=== PATIENT | male | born 1990 | race Caucasian/White ===

== ENCOUNTER 2017-01-22 08:06 | Emergency (ER) | payer OTHER ==
[~2017-01-22] VITALS: Ht 177.8 cm; Wt 81.5 kg
[2017-01-22 08:10] VITALS: BP 139/70; PULSE 51; RESP 17; TEMP 97.6; O2SAT 100
[2017-01-22] MEDS ORDERED: BLOOD PRESSURE MED PO (08:21)
[2017-01-22] MEDS ORDERED: OMEP20TA93 PO (08:21)
[2017-01-22] MEDS ORDERED: SUBO2MIS SL (08:21)
[2017-01-22 08:43] LABS: AUTOMATED NEUTROPHIL # 5.8 TH/MM3 (1.8-7.7); BASOPHIL # 0.1 TH/MM3 (0-0.2); BASOPHIL % 0.8 % (0.0-2.0); EOSINOPHIL % 0.6 % (0.0-4.0); HEMATOCRIT 41.6 % (39.0-51.0); HEMOGLOBIN 14.1 GM/DL (13.0-17.0); LYMPH % 19.9 % (9.0-44.0); LYMPHOCYTE # 1.5 TH/MM3 (1.0-4.8); MEAN CELL VOLUME 84.9 FL (80.0-100.0); MEAN CORPUSCULAR HEMOGLOBIN 28.7 PG (27.0-34.0); MEAN CORPUSCULAR HGB CONC 33.8 % (32.0-36.0); MEAN PLATELET VOLUME 7.8 FL (7.0-11.0); MONO % 3.2 % (0.0-8.0); MONOCYTE # 0.2 TH/MM3 (0-0.9); NEUT % 75.5 % (16.0-70.0); PLATELET COUNT 232 TH/MM3 (150-450); RED CELL DISTRIBUTION WIDTH 12.5 % (11.6-17.2); WHITE BLOOD COUNT 7.6 TH/MM3 (4.0-11.0)
--- NOTE | 2017-01-22 08:49 | PD ---
HPI Chief Complaint: Abdominal Pain Time Seen by Provider: 08:15 Travel History International Travel<30 days: No Contact w/Intl Traveler<30days: No Traveled to known affect area: No History of Present Illness HPI This 26-year-old male is brought by ambulance. He says he doesn't feel good. He denies any vomiting or diarrhea. He says he is having unbearable pain and indicates both lower chest and abdomen as the site of the pain. He says he has some kind of stomach trouble but he cannot elaborate on what kind of trouble. He says he takes blood pressure medications and Zoloft. He admits to drinking occasionally. He denies drug use although paramedics report that he has been on Suboxone and has not had it for 2 days. Patient has been telling his parents that he has not felt well since he has been on Zoloft. He has been feeling weak and tired PFS Past Medical History High Cholesterol: Yes Diabetes: Yes Patient Takes Glucophage: No GERD: Yes Hypertension: Yes Social History Alcohol Use: Yes Tobacco Use: Yes Substance Use: Yes Allergies-Medications (Allergen,Severity, Reaction): Coded Allergies: No Known Allergies (Unverified , 01/22/17) Reported Meds & Prescriptions Reported Meds & Active Scripts Active Reported [Blood Pressure Med] 1 Tab PO DAILY Suboxone Sublingual Film (Buprenorphine-Naloxone Sublingual Film) 2-0.5 Mg Film 1 Film SL Unique ID number required: Omeprazole 20 Mg Tab 20 Mg PO DAILY Review of Systems ROS Limitations: Uncooperative, Poor Historian General / Constitutional: No: Fever, Chills HENT: No: Headaches Cardiovascular: No: Chest Pain or Discomfort, Palpitations Respiratory: No: Cough Gastrointestinal: Positive: Abdominal Pain, No: Nausea Genitourinary: No: Urgency Skin: No Rash Neurologic: No: Weakness Psychiatric: Positive: Anxiety Physical Exam Narrative GENERAL: Well-developed male. He is lying quietly in bed with his eyes closed. He does not appear to be in distress. He does not answer a lot of questions though he is capable of answering some. SKIN: Focused skin assessment warm/dry. HEAD: Atraumatic. Normocephalic. EYES: Pupils equal and round. No scleral icterus. No injection or drainage. ENT: No nasal bleeding or discharge. Mucous membranes pink and moist. NECK: Trachea midline. No JVD. CARDIOVASCULAR: Regular rate and rhythm. No murmur appreciated. RESPIRATORY: No accessory muscle use. Clear to auscultation. Breath sounds equal bilaterally. GASTROINTESTINAL: Abdomen soft, non-tender, nondistended. Hepatic and splenic margins not palpable. MUSCULOSKELETAL: No obvious deformities. No clubbing. No cyanosis. No edema. NEUROLOGICAL: Awake and alert. No obvious cranial nerve deficits. Motor grossly within normal limits. The speech. PSYCHIATRIC: Patient is quite withdrawn Data Data Last Documented VS Vital Signs Date Time Temp Pulse Resp B/P (MAP) Pulse Ox O2 Delivery O2 Flow Rate FiO2 01/22/17 08:10 97.6 51 17 139/70 (93) 100 Orders Orders Electrocardiogram (01/22/17 08:22) Complete Blood Count With Diff (01/22/17 08:22) Comprehensive Metabolic Panel (01/22/17 08:22) Troponin I (01/22/17 08:22) Lipase (01/22/17 08:22) Ua Includes Microscopic (01/22/17 08:49) Drug Screen, Random Urine (01/22/17 08:49) Acetaminophen (Tylenol) (01/22/17 09:00) Al-Mag Hy-Si 40-40-4 Mg/Ml Liq (Mag-Al P (01/22/17 10:30) Labs Laboratory Tests Test 01/22/17 08:35 01/22/17 09:00 White Blood Count 7.6 TH/MM3 Red Blood Count 4.90 MIL/MM3 Hemoglobin 14.1 GM/DL Hematocrit 41.6 % Mean Corpuscular Volume 84.9 FL Mean Corpuscular Hemoglobin 28.7 PG Mean Corpuscular Hemoglobin Concent 33.8 % Red Cell Distribution Width 12.5 % Platelet Count 232 TH/MM3 Mean Platelet Volume 7.8 FL Neutrophils (%) (Auto) 75.5 % Lymphocytes (%) (Auto) 19.9 % Monocytes (%) (Auto) 3.2 % Eosinophils (%) (Auto) 0.6 % Basophils (%) (Auto) 0.8 % Neutrophils # (Auto) 5.8 TH/MM3 Lymphocytes # (Auto) 1.5 TH/MM3 Monocytes # (Auto) 0.2 TH/MM3 Eosinophils # (Auto) 0.0 TH/MM3 Basophils # (Auto) 0.1 TH/MM3 CBC Comment DIFF FINAL Differential Comment Blood Urea Nitrogen 10 MG/DL Creatinine 0.93 MG/DL Random Glucose 140 MG/DL Total Protein 6.9 GM/DL Albumin 3.3 GM/DL Calcium Level 8.7 MG/DL Alkaline Phosphatase 82 U/L Aspartate Amino Transf (AST/SGOT) 14 U/L Alanine Aminotransferase (ALT/SGPT) 26 U/L Total Bilirubin 0.5 MG/DL Sodium Level 137 MEQ/L Potassium Level 3.6 MEQ/L Chloride Level 102 MEQ/L Carbon Dioxide Level 28.3 MEQ/L Anion Gap 7 MEQ/L Estimat Glomerular Filtration Rate 98 ML/MIN Troponin I LESS THAN 0.02 NG/ML Lipase 185 U/L Urine Collection Type CLEAN CATCH Urine Color YELLOW Urine Turbidity MOD Urine pH 8.5 Urine Specific [facility] 1.018 Urine Protein TRACE mg/dL Urine Glucose (UA) NEG mg/dL Urine Ketones NEG mg/dL Urine Occult Blood SMALL Urine Nitrite NEG Urine Bilirubin NEG Urine Leukocyte Esterase NEG Urine RBC 4-9 /hpf Urine Squamous Epithelial Cells 0-5 /hpf Urine Calcium Oxalate Crystals FEW /hpf Urine Amorphous Sediment LARGE Urine Collection Time 09:00 Urine Opiates Screen NEG Urine Barbiturates Screen NEG Urine Amphetamines Screen NEG Urine Benzodiazepines Screen NEG Urine Cocaine Screen NEG Urine Cannabinoids Screen NEG MDM Medical Decision Making Medical Screen Exam Complete: Yes Emergency Medical Condition: Yes Medical Record Reviewed: Yes Differential Diagnosis Differential includes psychiatric disorder, malingering, gastritis, cardiac illness, adverse medication reaction Narrative Course Drug screen is negative. Lab work is unremarkable. Patient's affect is really not changed and he remained somewhat withdrawn. His parents have come to the emergency department and will take him home. He notes [place] and sees a physician there. it seems this may be an adverse effects of Zoloft Diagnosis Primary Impression: Adverse drug reaction Additional Instructions: Follow-up with your own medical doctor Disposition: 01 DISCHARGE HOME Condition: Stable Amado Marte MD Jan 22, 2017 08:49
[2017-01-22 08:52] LABS: CHLORIDE 102 MEQ/L (98-107); SODIUM (NA) 137 MEQ/L (136-145)
[2017-01-22 08:55] LABS: CALCIUM 8.7 MG/DL (8.5-10.1)
[2017-01-22 08:56] LABS: ALBUMIN 3.3 GM/DL (3.4-5.0); BICARBONATE 28.3 MEQ/L (21.0-32.0); BLOOD UREA NITROGEN 10 MG/DL (7-18); GLUCOSE,RANDOM 140 MG/DL (74-106); LIPASE 185 U/L (73-393)
[2017-01-22 08:58] LABS: ALT (GPT) 26 U/L (12-78); AST (GOT) 14 U/L (15-37)
[2017-01-22 08:59] LABS: CREATININE 0.93 MG/DL (0.60-1.30); GLOMERULAR FILTRATION RATE 98 ML/MIN (>89)
[2017-01-22 09:00] LABS: TOTAL BILIRUBIN ADULT 0.5 MG/DL (0.2-1.0); TOTAL PROTEIN 6.9 GM/DL (6.4-8.2)
[2017-01-22] MEDS ORDERED: SODIUM CHLOR 0.9% 1000 ML INJ 1,000 ML IV ONE (09:00)
[2017-01-22] MEDS ORDERED: ACETAMINOPHEN 325 MG TAB PO ONE (09:00)
[2017-01-22 09:01] LABS: ALKALINE PHOSPHATASE 82 U/L (45-117)
[2017-01-22 09:04] LABS: BILIRUBIN, URINE NEG (NEG); BLOOD, URINE SMALL (NEG); GLUCOSE,URINE NEG (NEG); KETONE, URINE NEG (NEG); NITRITE,URINE NEG (NEG); PH, URINE 8.5 (5.0-8.5); URINE LEUKOCYTE ESTERASE NEG (NEG)
[2017-01-22 09:04] LABS: TROPONIN I LESS THAN 0.02 NG/ML (0.02-0.05)
[2017-01-22 09:13] LABS: AMORPHOUS SEDIMENT, URINE LARGE; CALCIUM OXALATE CRYSTALS,URINE FEW /hpf; SQUAMOUS EPITHELIAL CELL URINE 0-5 /hpf (0-5); URINE COLOR YELLOW (YELLW/STRAW)
[2017-01-22] MEDS ORDERED: ALUMINUM/MAGNESIUM/SIMETH 30 ML CUP PO ONE (10:30)
[2017-01-22] MEDS ORDERED: ZOLO25TA PO (11:27)
--- NOTE | 2017-01-22 14:45 | EKG ---
Date Performed: 01/22/2017 Time Performed: 08:38:41 PTAGE: 26 years EKG: SINUS BRADYCARDIA BORDERLINE ECG NO PREVIOUS TRACING DOCTOR: Ting Conley Interpretating Date/Time 01/22/2017 14:44:00
--- NOTE | 2017-01-22 14:45 | EKG ---
Date Performed: 01/22/2017 Time Performed: 08:38:41 PTAGE: 26 years EKG: SINUS BRADYCARDIA BORDERLINE ECG NO PREVIOUS TRACING DOCTOR: Ting Conley Interpretating Date/Time 01/22/2017 14:44:00
--- NOTE | 2017-01-22 14:45 | EKG ---
Date Performed: 01/22/2017 Time Performed: 08:38:41 PTAGE: 26 years EKG: SINUS BRADYCARDIA BORDERLINE ECG NO PREVIOUS TRACING DOCTOR: Ting Conley Interpretating Date/Time 01/22/2017 14:44:00
[2017-01-23] MEDS ORDERED: BUPR150CR PO (11:19)
== END 2017-01-22 10:47 | disposition home or self-care (01) ==
LOC: PHED 08:06
DX: R10.9 Unspecified abdominal pain (principal); R00.1 Bradycardia, unspecified; T43.225A Adverse effect of selective serotonin reuptake inhibitors, initial encounter; Z79.899 Other long term (current) drug therapy
CPT/HCPCS: 80053; 80307; 81001; 83690; 84484; 85025; 93005; 99284

== ENCOUNTER 2017-01-22 11:18 | Observation (INO) | payer OTHER ==
[~2017-01-22] VITALS: Ht 180.3 cm; Wt 83.0 kg
[~2017-01-22 11:18] MED LIST: BLOOD PRESSURE MED PO; OMEP20TA PO; SUBO2MIS SL
[2017-01-22] MEDS ORDERED: IOHEXOL 350 MG/ML 10 ML VIAL (for RAD DIAG) IVCONTRAST ONE (11:19)
[2017-01-22 11:21] VITALS: BP 162/74; PULSE 64; RESP 22; TEMP 97.9; O2SAT 100
[2017-01-22] MEDS ORDERED: ZOLO25TA PO (11:27)
[2017-01-22] MEDS ORDERED: SODIUM CHLOR 0.9% 1000 ML INJ 1,000 ML IV SCH ×2 (11:45→15:00)
[2017-01-22] MEDS ORDERED: ONDANSETRON HCL 4 MG/2 ML VIAL IV PUSH ONE (11:45)
[2017-01-22] MEDS ORDERED: MORPHINE SULFATE 4 MG/ML INJ IV PUSH ONE (11:45)
--- NOTE | 2017-01-22 11:45 | PD ---
HPI Chief Complaint: Abdominal Pain Time Seen by Provider: 11:23 Travel History International Travel<30 days: No Contact w/Intl Traveler<30days: No Traveled to known affect area: No History of Present Illness HPI 26 years old male complains of chest pain and abdominal pain and generalized malaise and weakness. Patient states that the symptoms started this morning. Patient was brought by EMS to [place] emergency room for evaluation this morning. Patient had EKG, blood tests and urine drug screen and UA done at the facility. Physical were normal. Patient was advised to follow-up with personal physician. Patient however complains of increasing chest pain or abdominal pain and became more lethargic. Patient was brought to the emergency room by his parents for evaluation. Patient states that he has history of hypertension, diabetes, hyperlipidemia, GERD. Patient denies history of illicit drug abuse. Patient was on Suboxone. It Is not clear when was the last time patient took Suboxone. Patient states that he stopped taking Suboxone several days ago. Patient started taking Zoloft recently. Patient's personal physician is from out of [facility]. REPLACED BY [facility] Past Medical History Anxiety: Yes Depression: Yes High Cholesterol: Yes Diabetes: Yes Patient Takes Glucophage: No GERD: Yes Hypertension: Yes Past Surgical History Surgical History: No Previous Surgery Social History Alcohol Use: No Tobacco Use: No Substance Use: Yes (ivdu hx) Allergies-Medications (Allergen,Severity, Reaction): Coded Allergies: No Known Allergies (Unverified , 01/22/17) Reported Meds & Prescriptions Reported Meds & Active Scripts Active Reported Zoloft (Sertraline HCl) 25 Mg Tab Unknown Dose PO DAILY [Blood Pressure Med] 1 Tab PO DAILY Omeprazole 20 Mg Tab 20 Mg PO DAILY Review of Systems General / Constitutional: No: Fever Eyes: No: Visual changes HENT: No: Headaches Cardiovascular: Positive: Chest Pain or Discomfort Respiratory: No: Shortness of Breath Gastrointestinal: Positive: Abdominal Pain Genitourinary: No: Dysuria Musculoskeletal: No: Pain Skin: No Rash Neurologic: No: Weakness Psychiatric: No: Depression Endocrine: No: Polydipsia Hematologic/Lymphatic: No: Easy Bruising Physical Exam Narrative GENERAL: Well-nourished, well-developed patient. SKIN: Focused skin assessment warm/dry. HEAD: Normocephalic. EYES: No scleral icterus. No injection or drainage. Pupils 2 mm equal reactive. NECK: Supple, trachea midline. No JVD or lymphadenopathy. CARDIOVASCULAR: Regular rate and rhythm without murmurs, gallops, or rubs. RESPIRATORY: Breath sounds equal bilaterally. No accessory muscle use. GASTROINTESTINAL: Abdomen soft, non-tender, nondistended. MUSCULOSKELETAL: No cyanosis, or edema. BACK: Nontender without obvious deformity. No CVA tenderness. Neurologic exam: Patient's lethargic however answer questions appropriately. Patient moves all extremities well. No obvious focal no larger deficit. Data Data Last Documented VS Vital Signs Date Time Temp Pulse Resp B/P (MAP) Pulse Ox O2 Delivery O2 Flow Rate FiO2 01/22/17 11:21 97.9 64 22 162/74 (103) 100 Orders Orders Electrocardiogram (01/22/17 11:27) Complete Blood Count With Diff (01/22/17 11:27) Comprehensive Metabolic Panel (01/22/17 11:27) Prothrombin Time / Inr (Pt) (01/22/17 11:27) Act Partial Throm Time (Ptt) (01/22/17 11:27) Blood Culture (01/22/17 11:27) C-Reactive Protein (Crp) (01/22/17 11:27) Urinalysis - C+S If Indicated (01/22/17 11:27) Westergren Sedimentation Rate (01/22/17 11:27) Magnesium (Mg) (01/22/17 11:27) Phosphorus (Po4) (01/22/17 11:27) Chest, Single Ap (01/22/17 11:27) Ct Brain W/O Iv Contrast(Rout) (01/22/17 11:27) Ct Abd/Pel W Iv Contrast(Rout) (01/22/17 11:27) Iv Access Insert/Monitor (01/22/17 11:27) Ecg Monitoring (01/22/17 11:27) Oximetry (01/22/17 11:27) Lactic Acid (01/22/17 11:27) Ct Pulmonary Angiogram (01/22/17 11:33) Sodium Chlor 0.9% 1000 Ml Inj (Ns 1000 M (01/22/17 11:45) Morphine Inj (Morphine Inj) (01/22/17 11:45) Ondansetron Inj (Zofran Inj) (01/22/17 11:45) Iohexol 350 Inj (Omnipaque 350 Inj) (01/22/17 11:19) Labs Laboratory Tests Test 01/22/17 11:35 White Blood Count 9.2 TH/MM3 Red Blood Count 5.36 MIL/MM3 Hemoglobin 15.6 GM/DL Hematocrit 46.8 % Mean Corpuscular Volume 87.2 FL Mean Corpuscular Hemoglobin 29.1 PG Mean Corpuscular Hemoglobin Concent 33.4 % Red Cell Distribution Width 13.6 % Platelet Count 288 TH/MM3 Mean Platelet Volume 8.0 FL Neutrophils (%) (Auto) 82.2 % Lymphocytes (%) (Auto) 14.7 % Monocytes (%) (Auto) 2.6 % Eosinophils (%) (Auto) 0.1 % Basophils (%) (Auto) 0.4 % Neutrophils # (Auto) 7.6 TH/MM3 Lymphocytes # (Auto) 1.4 TH/MM3 Monocytes # (Auto) 0.2 TH/MM3 Eosinophils # (Auto) 0.0 TH/MM3 Basophils # (Auto) 0.0 TH/MM3 CBC Comment DIFF FINAL Differential Comment Erythrocyte Sedimentation Rate 1 mm/hr Prothrombin Time 12.0 SEC Prothromb Time International Ratio 1.1 RATIO Activated Partial Thromboplast Time 26.5 SEC Blood Urea Nitrogen 9 MG/DL Creatinine 0.89 MG/DL Random Glucose 135 MG/DL Total Protein 7.4 GM/DL Albumin 3.6 GM/DL Calcium Level 9.1 MG/DL Phosphorus Level 1.1 MG/DL Magnesium Level 2.1 MG/DL Alkaline Phosphatase 85 U/L Aspartate Amino Transf (AST/SGOT) 18 U/L Alanine Aminotransferase (ALT/SGPT) 27 U/L Total Bilirubin 0.4 MG/DL Sodium Level 137 MEQ/L Potassium Level 4.0 MEQ/L Chloride Level 103 MEQ/L Carbon Dioxide Level 26.9 MEQ/L Anion Gap 7 MEQ/L Estimat Glomerular Filtration Rate 103 ML/MIN Lactic Acid Level 2.0 mmol/L C-Reactive Protein LESS THAN 0.29 MG/DL MDM Medical Decision Making Medical Screen Exam Complete: Yes Emergency Medical Condition: Yes Interpretation(s) Last Impressions CT Angiography 01/22/17 1943 Signed Impressions: Service Date/Time: December 12:49 - CONCLUSION: 1. No CT evidence for pulmonary artery embolism. 2. Unremarkable CT examination of the chest. Benji Jenkins MD Chest X-Ray 01/22/17 1127 Signed Impressions: Service Date/Time: December 11:54 - CONCLUSION: Normal examination. Eugenio Lund MD 1328 PM. CBC within normal limit. Sedimentation rate 1. CMP within normal limit. Lactic acid 2.0. Differential Diagnosis Differential diagnosis including substance-induced mood disorder, angina, AL, PE , pneumothorax, gastritis, PUD, pancreatitis, cholecystitis, colitis, UTI, pyelonephritis, sepsis. Narrative Course 26 years old male with chest pain and abdominal pain altered mental status. Normal saline solution 125 cc an hour. Diagnosis Primary Impression: Chest pain Qualified Codes: R07.9 - Chest pain, unspecified Additional Impressions: Abdominal pain Qualified Codes: R10.13 - Epigastric pain Altered mental status Qualified Codes: R41.0 - Disorientation, unspecified Alexandru Quiroz MD Jan 22, 2017 11:45
[2017-01-22 11:54] LABS: AUTOMATED NEUTROPHIL # 7.6 TH/MM3 (1.8-7.7); BASOPHIL % 0.4 % (0.0-2.0); EOSINOPHIL % 0.1 % (0.0-4.0); HEMATOCRIT 46.8 % (39.0-51.0); HEMOGLOBIN 15.6 GM/DL (13.0-17.0); LYMPH % 14.7 % (9.0-44.0); LYMPHOCYTE # 1.4 TH/MM3 (1.0-4.8); MEAN CELL VOLUME 87.2 FL (80.0-100.0); MEAN CORPUSCULAR HEMOGLOBIN 29.1 PG (27.0-34.0); MEAN CORPUSCULAR HGB CONC 33.4 % (32.0-36.0); MONO % 2.6 % (0.0-8.0); MONOCYTE # 0.2 TH/MM3 (0-0.9); NEUT % 82.2 % (16.0-70.0); PLATELET COUNT 288 TH/MM3 (150-450); RED BLOOD COUNT 5.36 MIL/MM3 (4.50-5.90); RED CELL DISTRIBUTION WIDTH 13.6 % (11.6-17.2); WHITE BLOOD COUNT 9.2 TH/MM3 (4.0-11.0)
[2017-01-22 12:03] LABS: INTERNATIONAL NORMALIZED RATIO 1.1 RATIO
[2017-01-22 12:14] LABS: ALBUMIN 3.6 GM/DL (3.4-5.0); ALT (GPT) 27 U/L (12-78); AST (GOT) 18 U/L (15-37); BICARBONATE 26.9 MEQ/L (21.0-32.0); BLOOD UREA NITROGEN 9 MG/DL (7-18); C-REACTIVE PROTEIN LESS THAN 0.29 MG/DL (0.00-0.30); CALCIUM 9.1 MG/DL (8.5-10.1); CHLORIDE 103 MEQ/L (98-107); CREATININE 0.89 MG/DL (0.60-1.30); GLOMERULAR FILTRATION RATE 103 ML/MIN (>89); GLUCOSE,RANDOM 135 MG/DL (74-106); MAGNESIUM 2.1 MG/DL (1.5-2.5); PHOSPHORUS 1.1 MG/DL (2.5-4.9); SODIUM (NA) 137 MEQ/L (136-145)
[2017-01-22 12:16] LABS: ALKALINE PHOSPHATASE 85 U/L (45-117); TOTAL BILIRUBIN ADULT 0.4 MG/DL (0.2-1.0); TOTAL PROTEIN 7.4 GM/DL (6.4-8.2)
--- NOTE | 2017-01-22 12:25 | RADRPT ---
EXAM DATE/TIME: 01/22/2017 11:54 [facility] COMPARISON: No previous studies available for comparison. INDICATIONS : Shortness of breath. MEDICAL HISTORY : Hypercholesterolemia. Hypertension Gastroesophageal reflux disease. Diabetes SURGICAL HISTORY : None. ENCOUNTER: Initial ACUITY: 1 day PAIN SCORE: Non-responsive. LOCATION: Bilateral chest FINDINGS: A single view of the chest demonstrates the lungs to be symmetrically aerated without evidence of mas s, infiltrate or effusion. The cardiomediastinal contours are unremarkable. Osseous structures are intact. CONCLUSION: Normal examination. Eugenio Lund MD on January 22, 2017 at 12:22 Board Certified Radiologist. This report was verified electronically.
--- NOTE | 2017-01-22 13:13 | RADRPT ---
EXAM DATE/TIME: 01/22/2017 12:49 [facility] COMPARISON: No previous studies available for comparison. INDICATIONS : Chest pain IV CONTRAST: 99 cc Omnipaque 350 (iohexol) IV ; Cumulative dose for multiple exams. RADIATION DOSE: 15.98 CTDIvol (mGy) MEDICAL HISTORY : Hypertension. Diabetes SURGICAL HISTORY : None. ENCOUNTER: Initial ACUITY: 1 day PAIN SCALE: 10/10 LOCATION: chest TECHNIQUE: Volumetric scanning of the chest was performed using a pulmonary embolism protocol MIP images were re constructed. Using automated exposure control and adjustment of the mA and/or kV according to patien t size, radiation dose was kept as low as reasonably achievable to obtain optimal diagnostic quality images. DICOM format image data is available electronically for review and comparison. Follow-up recommendations for detected pulmonary nodules are based at a minimum on nodule size and pa tient risk factors according to Fleischner Society Guidelines. FINDINGS: PULMONARY ARTERIES: No filling defects are seen in the pulmonary arteries through the segmental level. LUNGS: There is no consolidation or pneumothorax . No concerning pulmonary nodule is visualized. PLEURAE: There is no pleural thickening or pleural effusion. MEDIASTINUM: There is good visualization of the great vessels of the middle mediastinum. No evidence of mediastin al or hilar adenopathy/mass. MUSCULOSKELETAL: Mild pectus deformity. Otherwise, within normal limits for patient age. MISCELLANEOUS: The visualized upper abdominal organs demonstrate no acute abnormality. CONCLUSION: 1. No CT evidence for pulmonary artery embolism. 2. Unremarkable CT examination of the chest. Benji Jenkins MD on January 22, 2017 at 13:07 Board Certified Radiologist. This report was verified electronically.
--- NOTE | 2017-01-22 13:26 | RADRPT ---
EXAM DATE/TIME: 01/22/2017 12:45 [facility] COMPARISON: No previous studies available for comparison. INDICATIONS : Altered mental status RADIATION DOSE: 47.03 CTDIvol (mGy) MEDICAL HISTORY : Hypertension. Diabetes SURGICAL HISTORY : None. ENCOUNTER: Initial ACUITY: 1 day PAIN SCALE: 10/10 LOCATION: cranial TECHNIQUE: Multiple contiguous axial images were obtained of the head. Using automated exposure control and adj ustment of the mA and/or kV according to patient size, radiation dose was kept as low as reasonably a chievable to obtain optimal diagnostic quality images. DICOM format image data is available electro nically for review and comparison. FINDINGS: CEREBRUM: The ventricles are normal for age. No evidence of midline shift, mass lesion, hemorrhage or acute in farction. No extra-axial fluid collections are seen. POSTERIOR FOSSA: The cerebellum and brainstem are intact. The 4th ventricle is midline. The cerebellopontine angle i s unremarkable. EXTRACRANIAL: The visualized portion of the orbits is intact. SKULL: The calvaria is intact. No evidence of skull fracture. CONCLUSION: Normal examination. Sony Alexander Jr., MD on January 22, 2017 at 13:23 Board Certified Radiologist. This report was verified electronically.
--- NOTE | 2017-01-22 13:27 | RADRPT ---
EXAM DATE/TIME: 01/22/2017 12:49 [facility] COMPARISON: No previous studies available for comparison. INDICATIONS : Mid abdomen pain starting last night IV CONTRAST: 99 cc Omnipaque 350 (iohexol) IV ; Cumulative dose for multiple exams. ORAL CONTRAST: No oral contrast ingested. RADIATION DOSE: 6.95 CTDIvol (mGy) MEDICAL HISTORY : Hypertension. Diabetes SURGICAL HISTORY : None. ENCOUNTER: Initial ACUITY: 1 day PAIN SCALE: 10/10 LOCATION: Abdomen TECHNIQUE: Volumetric scanning of the abdomen and pelvis was performed. Using automated exposure control and adjustment of the mA and/or kV according to patient size, radiation dose was kept as low as reasonably achievable to obtain optimal diagnostic quality images. DICOM format image data is av ailable electronically for review and comparison. FINDINGS: LOWER LUNGS: The visualized lower lungs are clear. LIVER: Homogeneous density without lesion. There is no dilation of the biliary tree. No calcifi ed gallstones. SPLEEN: Normal size without lesion. PANCREAS: Within normal limits. KIDNEYS: Normal in size and shape. Contrast in the renal collecting systems from recent contrast administration. There is no mass, stone or hydronephrosis. ADRENAL GLANDS: Within normal limits. VASCULAR: There is no aortic aneurysm. BOWEL/MESENTERY: The stomach, small bowel, and colon demonstrate no acute abnormality. The append ix is not definitively visualized. However, no significant adenopathy or significant inflammatory collins nge. There is no free intraperitoneal air or fluid. ABDOMINAL WALL: Within normal limits. RETROPERITONEUM: There is no lymphadenopathy. BLADDER: No wall thickening or mass. REPRODUCTIVE: Within normal limits. INGUINAL: There is no lymphadenopathy or hernia. MUSCULOSKELETAL: Within normal limits for patient age. CONCLUSION: 1. Appendix is not definitively visualized. However, no significant secondary inflammatory changes in the pericecal region. 2. No acute CT abnormality in the abdomen or pelvis. Benji Jenkins MD on January 22, 2017 at 13:21 Board Certified Radiologist. This report was verified electronically.
[2017-01-22] MEDS ORDERED: SODIUM CHLORIDE 0.9% FLUSH 10 ML FLUSH IV FLUSH PRN ×2 (13:45→14:00)
[2017-01-22] MEDS ORDERED: FAMOTIDINE 20 MG/2 ML VIAL IV PUSH ONE (13:45)
[2017-01-22 13:57] VITALS: O2SAT 99
[2017-01-22] MEDS ORDERED: NALOXONE HCL 0.4 MG/ML AMP IV PUSH PRN (14:00)
[2017-01-22] MEDS ORDERED: BISACODYL 10 MG SUPP RECTAL PRN (14:00)
[2017-01-22] MEDS ORDERED: ONDANSETRON HCL 4 MG/2 ML VIAL IVP PRN (14:00)
[2017-01-22] MEDS ORDERED: LACTULOSE SYRUP 20 GM/30 ML CUP PO PRN (14:00)
[2017-01-22] MEDS ORDERED: MAGNESIUM HYDROXIDE SUSP 30 ML CUP PO PRN (14:00)
[2017-01-22] MEDS ORDERED: ACETAMINOPHEN 325 MG TAB PO PRN (14:00)
[2017-01-22] MEDS ORDERED: SENNOSIDES 8.6 MG TAB PO PRN (14:00)
[2017-01-22 14:21] LABS: AMORPHOUS SEDIMENT, URINE MANY; BACTERIA, URINE OCC /hpf; BILIRUBIN, URINE NEG (NEG); BLOOD, URINE TRACE (NEG); GLUCOSE,URINE NEG (NEG); KETONE, URINE NEG (NEG); MUCUS URINE FEW /lpf (OCC); NITRITE,URINE NEG (NEG); PH, URINE 8.5 (5.0-8.5); URINE COLOR YELLOW (YELLW/STRAW); URINE LEUKOCYTE ESTERASE NEG (NEG)
--- NOTE | 2017-01-22 14:25 | HHI.HP ---
[facility] Non-Staff Admission Diagnosis altered mental status. Chest pain. Abdominal pain. Diagnoses: Chief Complaint: Altered mental status Travel History International Travel<30 Days: No Contact w/Intl Traveler <30 Da: No Traveled to Known Affected Are: No History of Present Illness Written by Tong Kim, acting as scribe for Dr. Reza on 01/22/17 at 14:24. 26-year-old male with past medical history of HTN, HLD, GERD, anxiety/depression , and hypoglycemia who presented for altered mental status. The patient remains lethargic and does not contribute much to history. The patient's parents are at bedside who do assist with history. Patient's father states he talked to the patient yesterday who complained of feeling a bit tired, but was otherwise normal. When the patient's father talked to him on the phone today he states that the patient told him that he "felt sick" and the patient was not very talkative at that time. The patient went to the emergency department in [facility] earlier today, workup was negative at that time and the patient was recommended to follow-up with his PCP. The patient's parents report he was not able to walk out of the ED. They called the patient's PCP who reportedly recommended he come back to the ED to have CTs done. Reportedly the patient has been complaining much more to his mother and his sister recently about being tired, depressed, not caring about anything, and questioning if he is bipolar. His PCP recently increased his Zoloft dose, does not see a psychiatrist. The patient's family reports that he has not expressed any suicidal ideations to them. The patient is arousable but sleepy. He is oriented to month, year, hospital, trunk, and self. He states that he started having chest pressure last night, denies any radiation and states the pain is still going on. The patient states that he has vomited multiple times today. He denies any diarrhea or abdominal pain. The patient denies any substance ingestion. Review of Systems ROS Limitations: Altered Mental Status Review of systems is limited secondary to altered mental status Past Family Social History Past Medical History Anxiety/depression Hypertension Hyperlipidemia GERD History of hypoglycemia Past Surgical History EGD Reported Medications Reported Meds & Active Scripts Active Reported Zoloft (Sertraline HCl) 25 Mg Tab Unknown Dose PO DAILY [Blood Pressure Med] 1 Tab PO DAILY Omeprazole 20 Mg Tab 20 Mg PO DAILY Allergies: Coded Allergies: No Known Allergies (Unverified , 01/22/17) Active Ordered Medications Current Medications Medications (Trade) Dose Ordered Sig/Calderon Route Start Time Stop Time Status Last Admin (NS Flush) 2 ml UNSCH PRN IV FLUSH 01/22/17 13:45 Sodium Chloride 1,000 ml @ 100 mls/hr Q10H IV 01/22/17 15:00 (NS Flush) 2 ml BID IV FLUSH 01/22/17 21:00 (Tylenol) 650 mg Q4H PRN PO 01/22/17 14:00 (Zofran Inj) 4 mg Q6H PRN IVP 01/22/17 14:00 (Narcan Inj) 0.4 mg UNSCH PRN IV PUSH 01/22/17 14:00 (Milk Of Magnesia Liq) 30 ml Q12H PRN PO 01/22/17 14:00 (Senokot) 17.2 mg Q12H PRN PO 01/22/17 14:00 (Dulcolax Supp) 10 mg DAILY PRN RECTAL 01/22/17 14:00 (Lactulose Liq) 30 ml DAILY PRN PO 01/22/17 14:00 Family History Father has high blood pressure Maternal grandmother has diabetes Social History Occasional alcohol use Smokeless tobacco use History of OxyContin abuse 5 years ago, went to rehabilitation for substance abuse and was on Suboxone at the time Physical Exam Vital Signs Vital Signs Date Time Temp Pulse Resp B/P (MAP) Pulse Ox O2 Delivery O2 Flow Rate FiO2 01/22/17 14:05 14 01/22/17 13:57 99 21 01/22/17 11:21 97.9 64 22 162/74 (103) 100 Physical Exam GENERAL: Well-developed well-nourished. In no acute distress. SKIN: Warm and dry. No lesions noted. HEENT: Normocephalic. Pupils equal and round and reactive to light. Mucous membranes pink and moist. CARDIOVASCULAR: Pectus excavatum. Regular rate and rhythm. No murmur appreciated. RESPIRATORY: No accessory muscle use. Clear to auscultation. Breath sounds equal bilaterally. GASTROINTESTINAL: Abdomen soft, non-tender, nondistended. Bowel sounds x4. MUSCULOSKELETAL: No obvious deformities. No clubbing or cyanosis. No edema. NEUROLOGICAL: Sleepy but awakens easily. Follows commands. No focal neurological deficits. Moves upper and lower extremities spontaneously. Normal speech. Laboratory Laboratory Tests Test 01/22/17 11:35 01/22/17 13:56 White Blood Count 9.2 Red Blood Count 5.36 Hemoglobin 15.6 Hematocrit 46.8 Mean Corpuscular Volume 87.2 Mean Corpuscular Hemoglobin 29.1 Mean Corpuscular Hemoglobin Concent 33.4 Red Cell Distribution Width 13.6 Platelet Count 288 Mean Platelet Volume 8.0 Neutrophils (%) (Auto) 82.2 Lymphocytes (%) (Auto) 14.7 Monocytes (%) (Auto) 2.6 Eosinophils (%) (Auto) 0.1 Basophils (%) (Auto) 0.4 Neutrophils # (Auto) 7.6 Lymphocytes # (Auto) 1.4 Monocytes # (Auto) 0.2 Eosinophils # (Auto) 0.0 Basophils # (Auto) 0.0 CBC Comment DIFF FINAL Differential Comment Erythrocyte Sedimentation Rate 1 Prothrombin Time 12.0 Prothromb Time International Ratio 1.1 Activated Partial Thromboplast Time 26.5 Blood Urea Nitrogen 9 Creatinine 0.89 Random Glucose 135 Total Protein 7.4 Albumin 3.6 Calcium Level 9.1 Phosphorus Level 1.1 Magnesium Level 2.1 Alkaline Phosphatase 85 Aspartate Amino Transf (AST/SGOT) 18 Alanine Aminotransferase (ALT/SGPT) 27 Total Bilirubin 0.4 Sodium Level 137 Potassium Level 4.0 Chloride Level 103 Carbon Dioxide Level 26.9 Anion Gap 7 Estimat Glomerular Filtration Rate 103 Lactic Acid Level 2.0 C-Reactive Protein LESS THAN 0.29 Date/Time Source Procedure Growth Status 01/22/17 11:35 Blood Peripheral Aerobic Blood Culture Pending Received 01/22/17 11:35 Blood Peripheral Anaerobic Blood Culture Pending Received Result Diagram: 01/22/17 1135 01/22/17 1135 Caprini VTE Risk Assessment Caprini VTE Risk Assessment: No/Low Risk (score <= 1) Caprini Risk Assessment Model Point Value = 1 Point Value = 2 Point Value = 3 Point Value = 5 Age 41-60 Minor surgery BMI > 25 kg/m2 Swollen legs Varicose veins or History of unexplained or recurrent spontaneous Oral contraceptives or hormone replacement Sepsis (< 1 month) Serious lung disease, including pneumonia (< 1 month) Abnormal pulmonary function Acute myocardial infarction Congestive heart failure (< 1 month) History of inflammatory bowel disease Medical patient at bed rest Age 61-74 Arthroscopic surgery Major open surgery (> 45 min) Laparoscopic surgery (> 45 min) Malignancy Confined to bed (> 72 hours) Immobilizing plaster cast Central venous access Age >= 75 History of VTE Family history of VTE Factor V Leiden Prothrombin [id number] Lupus anticoagulant Anticardiolipin antibodies Elevated serum homocysteine Heparin-induced thrombocytopenia Other congenital or acquired thrombophilia Stroke (< 1 month) Elective arthroplasty Hip, pelvis, or leg fracture Acute spinal cord injury (< 1 month) Prophylaxis Regimen Total Risk Factor Score Risk Level Prophylaxis Regimen 0-1 Low Early ambulation 2 Moderate Order ONE of the following: *Sequential Compression Device (SCD) *Heparin 5000 units SQ BID 3-4 Higher Order ONE of the following medications: *Heparin 5000 units SQ TID *Enoxaparin/Lovenox 40 mg SQ daily (WT < 150 kg, CrCl > 30 mL/min) *Enoxaparin/Lovenox 30 mg SQ daily (WT < 150 kg, CrCl > 10-29 mL/min) *Enoxaparin/Lovenox 30 mg SQ BID (WT < 150 kg, CrCl > 30 mL/min) AND/OR *Sequential Compression Device (SCD) 5 or more Highest Order ONE of the following medications: *Heparin 5000 units SQ TID (Preferred with Epidurals) *Enoxaparin/Lovenox 40 mg SQ daily (WT < 150 kg, CrCl > 30 mL/min) *Enoxaparin/Lovenox 30 mg SQ daily (WT < 150 kg, CrCl > 10-29 mL/min) *Enoxaparin/Lovenox 30 mg SQ BID (WT < 150 kg, CrCl > 30 mL/min) AND *Sequential Compression Device (SCD) Assessment and Plan Assessment and Plan 26-year-old male with past medical history of HTN, HLD, GERD, anxiety/depression , and hypoglycemia who presented for altered mental status Acute encephalopathy: Presented with altered mental status and lethargy. Unclear etiology, possibly toxic and/or metabolic. Reviewed: UDS negative. Labs with no signs of infection. Head CT normal. -Neuro checks -IVF with D5 with hypoglycemia history, although blood glucose has been within normal limits -Check TSH Atypical chest pain: Reviewed: EKG with rate 50, no acute changes. Pulmonary angiogram with no evidence of PE and unremarkable CT of the chest. -Check serial troponins and EKGs -Monitor on telemetry Depression: Patient's family reports severe depression recently. -Hold Zoloft for now and consult psychiatry Hypertension: BP is not optimally controlled. -Reconcile and resume home BP meds -IV Vasotec as needed Nausea and vomiting: Abdominal CT with no acute CT abnormality in the abdomen or pelvis. -Supportive care with IVF, antiemetics -Continue PPI for GERD history DVT prophylaxis: SCDs This note was transcribed by angie Kim PA-C. I, Dr. Rob Reza personally performed the history, physical exam, and medical decision making; and confirmed the accuracy of the information in the transcribed note. Authenticated by Dr. Rob Reza on 01/22/17 at 16:37. Discussed Condition With Patient with parents at bedside, ED staff Tong Kim Jan 22, 2017 14:24 Trudy Reza DO Jan 22, 2017 16:37
[2017-01-22] MEDS ORDERED: ENALAPRILAT 1.25 MG/ML VIAL IV PUSH PRN (14:45)
[2017-01-22 15:00] VITALS: BP 167/83; PULSE 42; RESP 15; O2SAT 99
[2017-01-22] MEDS: D5-1/2 NS + KCL 20 MEQ INJ 1,000 ML IV SCH (15:36)
[2017-01-22 15:47] VITALS: BP 159/81; PULSE 138; RESP 20; TEMP 95.4; O2SAT 99
[2017-01-22 20:00] VITALS: PULSE 42
[2017-01-22 20:01] VITALS: BP 176/82; PULSE 41; RESP 19; TEMP 98.7; O2SAT 100
[2017-01-22] MEDS: SODIUM CHLORIDE 0.9% FLUSH 10 ML FLUSH IV FLUSH SCH (21:00)
[2017-01-22 21:23] LABS: TROPONIN I LESS THAN 0.02 NG/ML (0.02-0.05)
--- NOTE | 2017-01-22 23:10 | EKG ---
Date Performed: 01/22/2017 Time Performed: 17:48:46 PTAGE: 26 years EKG: Sinus rhythm WITH JUNCTIONAL ESCAPE ABNORMAL RHYTHM ECG Compared to the PREVIOUS TRACING from 01/22/17, there is now junctional escape beats when R-R is longer DOCTOR: Alli Singleton Interpretating Date/Time 01/22/2017 23:08:34
--- NOTE | 2017-01-22 23:34 | EKG ---
Date Performed: 01/22/2017 Time Performed: 11:24:00 PTAGE: 26 years EKG: SINUS BRADYCARDIA WITH SINUS ARRHYTHMIA BORDERLINE ECG Compared to the PREVIOUS TRACING from 01/22/17, no significant change DOCTOR: Alli Singleton Interpretating Date/Time 01/22/2017 23:33:08
[2017-01-23 00:15] VITALS: PULSE 47
[2017-01-23 01:14] VITALS: BP 151/73; PULSE 45; RESP 18; TEMP 97.4; O2SAT 100
[2017-01-23 04:05] VITALS: PULSE 52
[2017-01-23] MEDS: D5-1/2 NS + KCL 20 MEQ INJ 1,000 ML IV SCH ×2 (04:56→11:14)
[2017-01-23 07:49] VITALS: BP 163/74; PULSE 49; RESP 18; TEMP 98.3; O2SAT 100
[2017-01-23] MEDS: SODIUM CHLORIDE 0.9% FLUSH 10 ML FLUSH IV FLUSH SCH (08:40)
[2017-01-23] MEDS ORDERED: PANTOPRAZOLE SOD 20 MG DELAYED RELEASE TAB PO SCH (09:00)
--- NOTE | 2017-01-23 10:42 | HHI.PR ---
Subjective Remarks Follow-up for altered mental status. Father at bedside. The patient is feeling better today. No further nausea and vomiting and has been tolerating oral intake. Denies any chest pain or abdominal pain. He does have some chronic back pain and complains that the bed is uncomfortable and is asking for heating pad. The patient was seen by psychiatry who offered voluntary admission , patient desires to follow up with psychiatry as outpatient. The patient's father does state that the patient told him that he has been taking Suboxone that he is not prescribed recently to avoid relapsing and reportedly the patient stopped taking Suboxone about 3 days prior to admission. Objective Vitals Vital Signs Date Time Temp Pulse Resp B/P (MAP) Pulse Ox O2 Delivery O2 Flow Rate FiO2 01/23/17 07:49 98.3 49 18 163/74 (103) 100 01/23/17 06:00 21 01/23/17 04:05 52 01/23/17 01:14 97.4 45 18 151/73 (99) 100 01/23/17 00:15 47 01/22/17 20:01 98.7 41 19 176/82 (113) 100 01/22/17 20:00 42 01/22/17 19:05 20 01/22/17 15:47 95.4 138 20 159/81 (107) 99 01/22/17 15:00 42 15 167/83 (111) 99 Room Air 01/22/17 14:05 14 01/22/17 13:57 99 21 01/22/17 11:21 97.9 64 22 162/74 (103) 100 I/O 01/22/17 01/22/17 01/22/17 01/23/17 01/23/17 01/23/17 07:00 15:00 23:00 07:00 15:00 23:00 Intake Total 320 ml Output Total 850 ml Balance 320 ml -850 ml Intake IV Total 320 ml Output Urine Total 850 ml Result Diagram: 01/22/17 1135 01/22/171134 Imaging Last Impressions CT Angiography 01/22/17 1133 Signed Impressions: Service Date/Time: December 12:49 - CONCLUSION: 1. No CT evidence for pulmonary artery embolism. 2. Unremarkable CT examination of the chest. Benji Jenkins MD Head CT 10/26/17 1127 Signed Impressions: Service Date/Time: December 12:45 - CONCLUSION: Normal examination. Sony Alexander Jr., MD Chest X-Ray 01/22/171126 Signed Impressions: Service Date/Time: , January 22, 2017 11:54 - CONCLUSION: Normal examination. Eugenio Lund MD Abdomen/Pelvis CT 01/22/171126 Signed Impressions: Service Date/Time: December 12:49 - CONCLUSION: 1. Appendix is not definitively visualized. However, no significant secondary inflammatory changes in the pericecal region. 2. No acute CT abnormality in the abdomen or pelvis. Benji Jenkins MD Objective Remarks GENERAL: Well-developed well-nourished. In no acute distress. SKIN: Warm and dry. No lesions noted. HEENT: Normocephalic. Pupils equal and round. Mucous membranes pink and moist. CARDIOVASCULAR: Regular rate and rhythm. No murmur appreciated. RESPIRATORY: No accessory muscle use. Clear to auscultation. Breath sounds equal bilaterally. GASTROINTESTINAL: Abdomen soft, non-tender, nondistended. Bowel sounds x4. MUSCULOSKELETAL: No obvious deformities. No clubbing or cyanosis. No edema. NEUROLOGICAL: Awake and alert. No focal neurological deficits. Moves upper and lower extremities spontaneously. Normal speech. PSYCHIATRIC: Mood and affect; aerobic guarded, but seems in better spirits today insight and judgment normal. A/P Assessment and Plan 26-year-old male with past medical history of HTN, HLD, GERD, anxiety/depression , and hypoglycemia who presented for altered mental status Acute encephalopathy: Presented with altered mental status and lethargy. Initially suspected symptoms might be related to substance abuse or withdrawal and patient did stop taking Suboxone 3 days prior. R/O underlying thyroid disorder. Symptoms much improved today. Reviewed: UDS negative. Labs with no signs of infection. Head CT normal. -Neuro checks -IVF with D5 with hypoglycemia history, although blood glucose has been within normal limits and monitor blood glucose -Thyroid workup as below Possible hyperthyroidism vs subclinical: TSH low. -We'll initiate workup with T3, T4, and cortisol level, although optimally this needs to be followed by endocrinology as outpatient. Consider methimazole depending on results. -Emphasized the need for outpatient endocrinology follow-up and patient and father agree. Atypical chest pain: Resolved. Reviewed: EKG with rate 50, no acute changes. Pulmonary angiogram with no evidence of PE and unremarkable CT of the chest. Troponin negative 3. -Monitor on telemetry Depression: Patient's family reports severe depression recently. -Hold Zoloft for now -Consult to psychiatry, and discussed with Dr. Rodarte. Patient offered voluntary inpatient psychiatry and he has declined and wishes to pursue outpatient psychiatry. -Psychiatry recommends Wellbutrin rather than Zoloft Hypertension: BP is not optimally controlled. -Reconcile and resume home BP med -IV Vasotec as needed -Give amlodipine 5 mg orally 1 pending resumption of home BP meds Nausea and vomiting: Abdominal CT with no acute CT abnormality in the abdomen or pelvis. Symptoms improved. -Supportive care with IVF, antiemetics -Continue PPI for GERD history Chronic back pain: -Heating pad and ibuprofen as needed DVT prophylaxis: SCDs Discharge Planning Follow-up thyroid/adrenal workup prior to discharge although patient needs outpatient endocrinology follow-up. Patient desires to follow-up with psychiatry as outpatient. Addendum 11:15: T3/T4 within normal limits and no acute intervention needed at this time. Recommended following up thyroid function next week and up with PCP and endocrinology; patient and father are happy with this and agree with plan of care; prescription for labs written. Discharge home today with prescription for Wellbutrin. Recommend follow-up with PCP, psychiatry, substance abuse counseling, and endocrinology. Tong Kim Jan 23, 2017 10:42
[2017-01-23] MEDS ORDERED: IBUPROFEN 600 MG TAB PO PRN (10:45)
[2017-01-23 10:50] LABS: FREE T4 1.05 NG/DL (0.76-1.46); TROPONIN I LESS THAN 0.02 NG/ML (0.02-0.05)
[2017-01-23] MEDS ORDERED: amLODIPine BESYLATE 5 MG TAB PO ONE (11:00)
[2017-01-23] MEDS ORDERED: BUPR150CR PO (11:19)
[2017-01-23 11:37] VITALS: BP 163/81; PULSE 47; RESP 18; TEMP 98.3; O2SAT 100
--- NOTE | 2017-01-23 12:48 | PD.PSY.CON ---
Provisional Diagnosis Admission Date Jan 22, 2017 at 13:53 [place] I. Major depressive disorder, single episode, severe, without psychosis [place] II. Deferred [place] III. hypertension [place] IV. Recent ruptured with a loving one [place] V. 55 History of Present Illness Service Psychiatry Consult Requested By ER team Reason for Consult Depressive symptoms Primary Care Physician Non-Staff HPI The patient is a 26-year-old man, domiciled alone, is single, he is employed, with psychiatric history of depression, no previous psychiatric hospitalizations, no previous suicidal attempts, he is on Zoloft 50 mg prescribed by PCP, he has a history of polysubstance dependence, including amphetamines, cocaine, marijuana, but he is in sustained full remission, with past medical history of HTN, HLD, GERD, who presented to the ED for altered mental status. As per initial ER documentation: The patient remains lethargic and does not contribute much to history. The patient's parents are at bedside who do assist with history. Patient's father states he talked to the patient yesterday who complained of feeling a bit tired, but was otherwise normal. When the patient' s father talked to him on the phone today he states that the patient told him that he "felt sick" and the patient was not very talkative at that time. The patient went to the emergency department in [facility] earlier today, workup was negative at that time and the patient was recommended to follow-up with his PCP. The patient's parents report he was not able to walk out of the ED. They called the patient's PCP who reportedly recommended he come back to the ED to have CTs done. Reportedly the patient has been complaining much more to his mother and his sister recently about being tired, depressed, not caring about anything, and questioning if he is bipolar. His PCP recently increased his Zoloft dose, does not see a psychiatrist. The patient's family reports that he has not expressed any suicidal ideations to them. The patient is arousable but sleepy. He is oriented to month, year, hospital, trunk, and self. He states that he started having chest pressure last night, denies any radiation and states the pain is still going on. The patient states that he has vomited multiple times today. He denies any diarrhea or abdominal pain. The patient denies any substance ingestion. Chart was reviewed, case was discussed with primary ER team. Lateral information from his father, was present in the ER, was collected. His father basically states that the patient has been very lethargic and not doing much for the last weeks. He refers that the patient has experienced to very difficult and traumatic experiences in his life in the last 2 years. He says that he broke up with a girlfriend the beginning of last year, he has recently broke up with another girlfriend a couple of months ago and since then he has been detached from the society, losing weight, not eating well, sleeping at in usual hours, no enjoying life, crying very often not being himself. His father says that at baseline the patient could be an impulsive person with a very short temper and frequent mood swings. On psychiatric evaluation today patient is found is cubicle of the ER. On the evaluation even though the patient is calm and cooperative, he is very tearful and seems to be very vulnerable and fragile. In tears the patient says he has been very depressed, not being himself, with poor motivations to do anything, poor appetite, sleeping too much , with frequent mood swings since he broke up with his girlfriend. Patient relays that he was a drug addict for many years and he even gave up drugs for his girlfriend, but she left him to go to [place]. He says that he is hopeful that she comes back at the end of the year and they can reunion, but he is having a hard time coping with the separation. The patient denies suicidal and homicidal ideation, he denies visual and auditory hallucinations. She is oriented 3, no attention deficit, no confusion, no fluctuation of consciousness present at this moment. Patient has been on Zoloft at the beginning 25 mg, recently increased to 50 mg by PCP, but he reports poor response. Patient reports occasional use of alcohol, 1 or 2 times per week, he denies the use of illicit drugs in the last 2 years. He says that in the past he used marijuana, amphetamines, opiates, cocaine, alcohol, but he went to rehabilitation he has been sober. I offered voluntary admission to the patient for medication management, individual and group therapies, and to monitor closer , but he declines. Review of Systems Constitutional: COMPLAINS OF: Fatigue, DENIES: Diaphoretic episodes, Fever, Weight gain, Weight loss, Chills, Dizziness, Change in appetite, Night Sweats Endocrine: DENIES: Heat/cold intolerance, Polydipsia, Polyuria, Polyphagia Eyes: DENIES: Blurred vision, Diplopia, Eye inflammation, Eye pain, Vision loss , Photosensitivity, Double Vision Ears, nose, mouth, throat: DENIES: Tinnitus, Hearing loss, Vertigo, Nasal discharge, Oral lesions, Throat pain, Hoarseness, Ear Pain, Running Nose, Epistaxis, Sinus Pain, Toothache, Odynophagia Respiratory: DENIES: Apneas, Cough, Snoring, Wheezing, Hemoptysis, Sputum production, Shortness of breath Cardiovascular: DENIES: Chest pain, Palpitations, Syncope, Dyspnea on Exertion , PND, Lower Extremity Edema, Orthopnea, Claudication Gastrointestinal: DENIES: Abdominal pain, Black stools, Bloody stools, Constipation, Diarrhea, Nausea, Vomiting, Difficulty Swallowing, Anorexia Genitourinary: DENIES: Sexual dysfunction, Urinary frequency, Urinary incontinence, Urgency, Hematuria, Dysuria, Nocturia, Penile Discharge, Testicular Pain, Testicular Swelling Musculoskeletal: DENIES: Joint pain, Muscle aches, Stiffness, Joint Swelling, Back pain, Neck pain Integumentary: DENIES: Abnormal pigmentation, Nail changes, Pruritus, Rash Hematologic/lymphatic: DENIES: Bruising, Lymphadenopathy Immunologic/allergic: DENIES: Eczema, Urticaria Neurologic: DENIES: Abnormal gait, Headache, Localized weakness, Paresthesias, Seizures, Speech Problems, Tremor, Poor Balance Psychiatric: DENIES: Anxiety, Confusion, Mood changes, Depression, Hallucinations, Agitation, Suicidal Ideation, Homicidal Ideation, Delusions Past Family Social History Coded Allergies: No Known Allergies (Unverified , 01/22/17) Active Scripts Bupropion HCl ER 12 HR (Wellbutrin SR 12 HR) 150 Mg Tab, 150 MG PO Q12HR for Control Depression, #60 TAB 0 Refills For sustained-release, take once daily for 3 days and then can take twice daily after that Prov:Tong Kim 01/23/17 Reported Medications [Blood Pressure Med] No Conflict Check, 1 TAB PO DAILY 01/22/17 Omeprazole (Omeprazole) 20 Mg Tab, 20 MG PO DAILY, #30 TAB 0 Refills 01/22/17 Discontinued Reported Medications Sertraline (Zoloft) 25 Mg Tab, PO DAILY, #30 TAB 0 Refills 01/22/17 Buprenorphine-Naloxone Sublingual Film (Suboxone Sublingual Film) 2-0.5 Mg Film , 1 FILM SL, FILM Unique ID number required: 01/22/17 Current Medications Medications (Trade) Dose Ordered Sig/[place] Route Start Time Stop Time Status Last Admin (NS Flush) 2 ml UNSCH PRN IV FLUSH 01/22/17 13:45 (NS Flush) 2 ml BID IV FLUSH 01/22/17 21:00 01/23/17 08:40 (Tylenol) 650 mg Q4H PRN PO 01/22/17 14:00 01/22/17 18:05 (Zofran Inj) 4 mg Q6H PRN IVP 01/22/17 14:00 (Narcan Inj) 0.4 mg UNSCH PRN IV PUSH 01/22/17 14:00 (Milk Of Magnesia Liq) 30 ml Q12H PRN PO 01/22/17 14:00 (Senokot) 17.2 mg Q12H PRN PO 01/22/17 14:00 (Dulcolax Supp) 10 mg DAILY PRN RECTAL 01/22/17 14:00 (Lactulose Liq) 30 ml DAILY PRN PO 01/22/17 14:00 Potassium Chloride/Dextrose/ Sod Cl 1,000 ml @ 75 mls/hr [id number] IV 01/22/17 15:36 01/23/17 11:14 (Vasotec Inj) 1.25 mg Q6H PRN IV PUSH 01/22/17 14:45 (Protonix) 20 mg DAILY PO 01/23/17 09:00 01/23/17 08:39 (Motrin) 600 mg Q8H PRN PO 01/23/17 10:45 Family Psych History Patient reports that he has an uncle with bipolar disorder Social History Patient was born and raised in [place], he lives in [place] alone, 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 2) Family support Physical Exam No tremors, no EPS, no stiffness, no psychomotor agitation, no gait disturbance , patient is mostly lethargic hypoactive Vital Signs Vital Signs Date Time Temp Pulse Resp B/P (MAP) Pulse Ox O2 Delivery O2 Flow Rate FiO2 01/23/17 11:37 98.3 47 18 163/81 (108) 100 01/23/17 06:00 21 01/22/17 15:00 Room Air Lab Results Test 01/22/17 13:56 01/22/17 20:15 01/23/17 10:19 Urine Color YELLOW Urine Turbidity HAZY Urine pH 8.5 Urine Specific [place] GREATER THAN 1.050 Urine Protein 30 mg/dL Urine Glucose (UA) NEG mg/dL Urine Ketones NEG mg/dL Urine Occult Blood TRACE Urine Nitrite NEG Urine Bilirubin NEG Urine Urobilinogen LESS THAN 2.0 MG/DL Urine Leukocyte Esterase NEG Urine RBC 12 /hpf Urine WBC 2 /hpf Urine Amorphous Sediment MANY Urine Bacteria OCC /hpf Urine Mucus FEW /lpf Microscopic Urinalysis Comment CULT NOT INDICATED Troponin I LESS THAN 0.02 NG/ML LESS THAN 0.02 NG/ML Thyroid Stimulating Hormone 3rd Gen 0.157 uIU/ML Free Thyroxine 1.05 NG/DL Total Triiodothyronine 81 NG/DL Date/Time Source Procedure Growth Status 01/22/17 11:35 Blood Peripheral Aerobic Blood Culture - Preliminary NO GROWTH IN 1 DAY Resulted 01/22/17 11:35 Blood Peripheral Anaerobic Blood Culture - Preliminary NO GROWTH IN 1 DAY Resulted Mental Status Examination Appearance: Appropriate Consciousness: Alert Orientation: x4 Motor Activity: Other (hypoactive) Speech: Hesitant, Slow Language: Adequate Fund of Knowledge: Adequate Memory: Unremarkable Mood: Sad Affect: Irritable, Sad Thought Content: Appropriate Hallucination Type: None Delusion Type: None Suicidal Ideation: No Suicidal Plan: No Suicidal Intention: No Homicidal Ideation: No Homicidal Plan: No Homicidal Intention: No Insight: Fair Judgment: Adequate Assessment & Plan Problem List: (1) Depression ICD Codes: F32.9 - Major depressive disorder, single episode, unspecified Assessment & Plan: On psychiatric evaluation patient is objectively depressed, fragile, poor normal. Reports some months now of increased depressive symptoms , consistent on frequent mood swings, psychomotor retardation, no enjoying usual enjoyable activities, increased sleep, decreased weight and appetite, decreased concentration and energy, but he denies hopelessness and helplessness. He also denies suicidal ideation and homicidal ideation, visual and auditory hallucinations. No paranoia, no delusions, no ideas of reference, no agitation or aggressive behaviors are present. Patient is fully oriented 3 , without any gross cognitive impairment present. Patient does report recent separation with a loving one as an evident source of current presentation. He has been treated with Zoloft 50 mg with limited response by PCP. Patient has history of impulsivity, incarcerations, polysubstance dependence that is now in sustained remission, mood swings," short temper" as per father. At the moment of this evaluation the patient does not meet criteria to be [place] acted. However, I offered to the patient a voluntary admission for stabilization of his depression and for medication adjustment, but he declined. After extensive psychoeducation, brief supportive psychotherapy, I have recommended to the patient to discontinue the Zoloft and start Wellbutrin 75 mg twice a day, which is a more activating antidepressant with a better side effect profile including less sexual side effects and less sedation. I have widely discussed this case with ER team. Psychiatrist signing off. Consul appreciated. Assessment & Plan Estimated LOS: days Problem Qualifiers (1) Depression: Maximus Rodarte MD Jan 23, 2017 12:48
[2017-01-23] MEDS ORDERED: buPROPion HCL 75 MG TAB PO SCH (13:00)
== END 2017-01-23 13:26 | disposition home or self-care (01) ==
LOC: NEPC 11:18 → NEDA 13:53 → NEPGCP 15:42
PROVIDERS: ADMIT Hospitalist; ATTEND Hospitalist
DX: R07.9 Chest pain, unspecified (principal); R10.13 Epigastric pain; R41.0 Disorientation, unspecified; R53.1 Weakness; K21.9 Gastro-esophageal reflux disease without esophagitis; I10 Essential (primary) hypertension; F41.9 Anxiety disorder, unspecified; F32.9 Major depressive disorder, single episode, unspecified; E78.00 Pure hypercholesterolemia, unspecified; R11.2 Nausea with vomiting, unspecified; G93.40 Encephalopathy, unspecified; R94.31 Abnormal electrocardiogram [ECG] [EKG]; F11.21 Opioid dependence, in remission
CPT/HCPCS: 70450; 71010; 71275; 74177; 80053; 81001; 83605; 83735; 84100; 84439; 84443; 84480; 84484; 85025; 85610; 85652; 85730; 86140; 87040; 93005; 96361; 96365; 96366; 96375; 96376; 99285; G0378; J2270; J2405; J3480; J7030; Q9967